=== PATIENT | female | born 1995 | race Caucasian/White ===

== ENCOUNTER 2018-05-28 09:34 | Emergency (ER) | payer OTHER ==
--- NOTE | 2018-05-28 11:10 | EDM.PDOC ---
ED HPI GENERAL MEDICAL PROBLEM - General Chief Complaint: Laceration Stated Complaint: RT POINTER FINGER LAC Time Seen by Provider: 05/28/18 10:42 Source of Information: Reports: Patient History Limitations: Reports: No Limitations - History of Present Illness INITIAL COMMENTS - FREE TEXT/NARRATIVE: 22-year-old female presents to the ED with a work-related injury. 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 Suffered an large avulsion injury to the distal aspect of her right index finger. Of note she is right hand dominant. Tetanus toxoid is up-to-date. No other injuries occurred. Onset: Today Onset Date: 05/28/18 Onset Time: 09:30 Duration: Minutes: Location: Reports: Upper Extremity, Right (Right index finger) Quality: Reports: Ache, Sharp, Stabbing, Throbbing Severity: Moderate Improves with: Reports: None (Another 10) Worsens with: Reports: None Context: Reports: Trauma (Work related injury when the radial aspect of her right index finger came in contact with a blade of a meat saw.). 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: Reports: Polycystic Ovaries Psychiatric History: Reports: Anxiety, Depression - Past Surgical History Other Female Surgeries/Procedures: One sided falopian tube removal Social & Family History - Family History Family Medical History: Noncontributory - Living Situation & Occupation Living situation: Reports: Single Occupation: Employed ED ROS GENERAL - Review of Systems Review Of Systems: See Below Constitutional: Reports: No Symptoms HEENT: Reports: No Symptoms Respiratory: Reports: No Symptoms Cardiovascular: Reports: No Symptoms Endocrine: Reports: No Symptoms GI/Abdominal: Reports: No Symptoms : Reports: No Symptoms Musculoskeletal: Reports: No Symptoms Skin: Reports: Other (Avulsion injury to the radial aspect of her right index finger middle phalanx) Neurological: Reports: No Symptoms Psychiatric: Reports: Anxiety (Currently under control with medical conditions.) , Depression Hematologic/Lymphatic: Reports: No Symptoms Immunologic: Reports: No Symptoms ED EXAM, SKIN/RASH Exam: See Below Exam Limited By: No Limitations General Appearance: Alert, WD/WN, Moderate Distress Eye Exam: Bilateral Eye: Normal Inspection Extremities: Other (Examination was primarily to the right index finger. Patient is suffered an avulsion injury to the radial aspect of the middle phalanx of her index finger. This occurred when he came in contact with a meat stringer in the workplace this morning. Is a deep full thickness skin loss approximate 1.2 cm in length and 0.8 cm in width. Early nothing to suture. The fingernails intact. She still has sensation to the distal radial aspect of her finger. No neurovascular involvement appeared to occur and no tendon involvement.) Neurological: Alert Skin: Warm, Dry, Intact, Normal Color Course - Vital Signs Last Recorded V/S: Last Vital Signs Temp 36.8 C 05/28/18 09:51 Pulse 101 H 05/28/18 09:51 Resp 17 05/28/18 09:51 BP 138/87 05/28/18 09:51 Pulse Ox 100 05/28/18 09:51 - Orders/Labs/Meds Meds: Medications Discontinued Medications Generic Name Dose Route Start Last Admin Trade Name Reji PRN Reason Stop Dose Admin Ibuprofen 600 mg 05/28/18 11:30 Motrin PO 05/28/18 11:31 ONETIME ONE Oxycodone/Acetaminophen 1 tab 05/28/18 11:29 Percocet 325-5 Mg PO 05/28/18 11:30 ONETIME ONE - Radiology Interpretation Free Text/Narrative:: 22-year-old female presents to the ED with a work-related injury from this morning. She right index finger came in contact with a meat stringer in the workplace at about 9:30 this morning. This resulted in a avulsion injury to the middle phalanx of the radial aspect of her index finger. She has a loss of skin full-thickness approximate 1.2 cm in length and 0.8 cm in width. Treatment will have to be conservative and there is really nothing to suture. Neuro no neurovascular involvement has occurred. Wound has been soaked. Tetanus toxoid is up-to-date. Plan topical antibiotic Telfa pad and then tube gauze dressing for the next 3 days. After that she is to remove the dressing and cleanse the area daily with soap and water or with light soaks in some Epsom salts. Will antibiotic to the wound and apply a large bandage to keep clean. 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 She may return to work sooner if alternative work duties are available to her she will not have to use her right hand at all. Given Motrin 600 mg by mouth with Percocet 5/325 mg by mouth once. Departure - Departure Time of Disposition: 11:08 Disposition: Home, Self-Care 01 Condition: Fair Clinical Impression: Avulsion of skin of index finger Qualifiers: Encounter type: initial encounter Qualified Code(s): S61.208A - Unspecified open wound of other finger without damage to nail, initial encounter - Discharge Information *PRESCRIPTION DRUG MONITORING PROGRAM REVIEWED*: Not Applicable *COPY OF PRESCRIPTION DRUG MONITORING REPORT IN PATIENT ERROL: Not Applicable Instructions: Deep Skin Avulsion Referrals: PCP,None [Primary Care Provider] - Forms: ED Department Discharge, ED Return to Work/School Form Additional Instructions: Evaluation in the ED today in regards to work related injury. Deep avulsion injury has occurred along the medial-radial aspect of your right index finger. Is occurred when the finger came in contact with a meat stringer blade. The tissue has been completely avulsed and is full thickness skin loss approximately 1.2 cm x 8 mm. Treatment is conservative. Dressing placed in the ED is to remain in place for the next 3 days. After that she may remove the dressing and either soak the finger in warm solution with a little bit of Epson salts or shower with glancing water not hurting it. Then apply topical antibiotic such as bacitracin or Polysporin to the wound daily and cover with a bandage to keep clean. Wound will take between 4 and 5 weeks to completely heal. No skin will come from the senior director marketing the edges of the wound and slowly closing in. Will be a permanent defect in the finger but mild. 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 After that you may use as tolerated. Return to medical care if any signs of infection occur such as redness swelling or obvious pus.
[2018-05-28] MEDS ORDERED: Acetaminophen/oxyCODONE 325-5 MG Tab PO ONE (11:29)
[2018-05-28] MEDS ORDERED: Ibuprofen 600 MG Tab PO ONE (11:30)
== END 2018-05-28 11:38 | disposition home or self-care (01) ==
LOC: JD.ED 09:34
DX: S61.300A Unspecified open wound of right index finger with damage to nail, initial encounter (principal); F41.9 Anxiety disorder, unspecified; F32.9 Major depressive disorder, single episode, unspecified; Y99.0 Civilian activity done for income or pay; W26.8XXA Contact with other sharp object(s), not elsewhere classified, initial encounter
CPT/HCPCS: 99283; A9270